=== PATIENT | female | born 1945 | race Caucasian/White ===

== ENCOUNTER → 2018-09-06 | Day surgery (SDC) | payer MEDICARE ==
[2018-09-01 09:25] LABS: BASOPHILS # (AUTO) 0.1 (0.0-0.1); BASOPHILS % 0.7 % (0.0-1.0); EOSINOPHILS # (AUTO) 0.2 (0.0-0.4); EOSINOPHILS % 2.5 % (0.0-6.0); HEMATOCRIT 40.5 % (34.2-44.1); HEMOGLOBIN 13.3 g/dL (12.0-16.0); LYMPHOCYTES # (AUTO) 3.1 (1.0-3.2); LYMPHOCYTES % 33.1 % (18.0-39.1); MEAN CORPUSCULAR HGB CONC 32.8 g/dL (31-35); MEAN CORPUSCULAR VOLUME 91.4 fL (81-99); MONOCYTES # (AUTO) 1.1 (0.2-0.8); MONOCYTES % 11.5 % (4.4-11.3); NEUTROPHILS # (AUTO) 4.9 (2.1-6.9); NEUTROPHILS % 51.9 % (38.7-80.0); PLATELET COUNT 434 x10e3/uL (140-360); RED BLOOD COUNT 4.43 x10e6/uL (3.6-5.1); RED CELL DISTRIBUTION WIDTH 12.9 % (11.7-14.4)
[~2018-09-06] MED LIST: DILTIAZEM HCL30 MG; FENTANYL CITRATE/PF 100MCG/2 ML INJ ONE; HYOSCYAMINE SULFATE 0.5 MG/ML INJ ONE; LOSARTAN POTASS25 MG PO; MIDAZOLAM HCL 2 MG/2 ML VIAL ONE; PROPOFOL IV EMULSION 10 MG/ML 50 ML VIAL ONE; [UNRECOGNIZED DRUG - OTHER]
--- OUTSIDE RECORDS SUMMARY | 2018-09-06 07:41 | XMS REPORT ---
[facility] Address Unknown Phone Unavailable Care Team Providers Care Wildlife Veterinarian Name Role Phone Unavailable Unavailable Payers Payer Name Policy Type Policy Number Effective Date Expiration Date Problems This patient has no known problems. Allergies, Adverse Reactions, Alerts Allergy Name Allergy Type Status Severity Reaction(s) Onset Date Inactive Date Treating Clinician Comments codeine DA Active SV 2018-07-24 00:00:00 codeine DA Active SV 2009-02-05 00:00:00 Medications This patient has no known medications.
[2018-09-06 11:50] VITALS: BP 149/93
--- NOTE | 2018-09-06 12:07 | Operative Report ---
DATE OF PROCEDURE: September 06, 2018 REFERRING PHYSICIAN: Dr. Vanessa Jeffries. PROCEDURE PERFORMED: Colonoscopy and polypectomy. INDICATIONS FOR COLONOSCOPY: Surveillance colonoscopy. Personal history of colon polyps. MEDICATION: Patient was done under MAC. Please see anesthesiologist's note. PROCEDURE: With patient in left lateral decubitus position, a flexible fiberoptic Olympus colonoscope was inserted into the rectum with ease and advanced all the way to the cecum. There was an approximately 6-mm polyp just below the ileocecal valve that was snared. Polypectomy site was hemoclipped. The scope was then slowly withdrawn and the mucosa overlying the ascending colon and transverse colon appeared to be within normal limits. One polyp was hot biopsied from the descending colon. Diverticular disease was noted to involve the distal descending and the sigmoid colon. The rectum grossly appeared to be within normal limits. The scope was then retroflexed into the distal rectum and small internal hemorrhoids were noted, none of which was actively bleeding. The scope was then straightened out. It was subsequently withdrawn. Patient tolerated the procedure well. IMPRESSIONS 1. Cecal polyp, snared and site was hemoclipped. 2. Descending colon polyp, hot biopsied. 3. Diverticulosis. 4. Internal hemorrhoids, none actively bleeding. PLAN: Follow up histology. Initiate high-fiber, low-fat diet. Initiate high-fiber supplement. Patient might benefit from a followup colonoscopy in 3 to 5 years. Job#: [id number] TA cc:VANESSA JEFFRIES, DO,
== END | disposition home or self-care (01) ==
LOC: OR 07:38
PROVIDERS: ATTEND Internal Medicine Gastroenterology
DX: Z09 Encounter for follow-up examination after completed treatment for conditions other than malignant neoplasm (principal); K63.5 Polyp of colon; K57.30 Diverticulosis of large intestine without perforation or abscess without bleeding; K59.09 Other constipation; K64.8 Other hemorrhoids; K21.9 Gastro-esophageal reflux disease without esophagitis; K44.9 Diaphragmatic hernia without obstruction or gangrene; I10 Essential (primary) hypertension; E11.9 Type 2 diabetes mellitus without complications; F41.9 Anxiety disorder, unspecified; Z88.6 Allergy status to analgesic agent; Z01.810 Encounter for preprocedural cardiovascular examination; Z01.812 Encounter for preprocedural laboratory examination; Z79.4 Long term (current) use of insulin
CPT/HCPCS: 36415 ×2; 45384; 45385; 82948; 85025; 88305; 93005; J1980; J2250; 45378

== ENCOUNTER 2022-04-30 18:54 | Inpatient (IN) | payer MEDICARE ==
[~2022-04-30] VITALS: Ht 154.9 cm; Wt 59.0 kg
[~2022-04-30 18:54] MED LIST changes: -FENTANYL CITRATE/PF 100MCG/2 ML INJ ONE; -HYOSCYAMINE SULFATE 0.5 MG/ML INJ ONE; -MIDAZOLAM HCL 2 MG/2 ML VIAL ONE; -PROPOFOL IV EMULSION 10 MG/ML 50 ML VIAL ONE
[2022-04-30] MEDS ORDERED: ONDANSETRON HCL INJ 2MG/ML 2ML 2 MG/ML VIAL IV PRN (19:15)
[2022-04-30 20:12] LABS: BASOPHILS # (AUTO) 0.1 (0.0-0.1); BASOPHILS % 0.7 % (0.0-1.0); EOSINOPHILS # (AUTO) 0.2 (0.0-0.4); EOSINOPHILS % 1.7 % (0.0-6.0); HEMATOCRIT 38.1 % (34.2-44.1); HEMOGLOBIN 12.2 g/dL (12.0-16.0); LYMPHOCYTES # (AUTO) 3.1 (1.0-3.2); LYMPHOCYTES % 28.6 % (18.0-39.1); MEAN CORPUSCULAR VOLUME 90.7 fL (81-99); MONOCYTES # (AUTO) 1.7 (0.2-0.8); MONOCYTES % 16.2 % (4.4-11.3); NEUTROPHILS # (AUTO) 5.6 (2.1-6.9); NEUTROPHILS % 52.5 % (38.7-80.0); PLATELET COUNT 543 x10e3/uL (140-360); RED CELL DISTRIBUTION WIDTH 13.4 % (11.7-14.4)
[2022-04-30 20:27] LABS: CLARITY,URINE CLEAR (CLEAR); COLOR,URINE YELLOW (YELLOW)
[2022-04-30 20:28] LABS: KETONES,URINE NEGATIVE (NEGATIVE); LEUKOCYTE ESTERASE ,URINE NEGATIVE (NEGATIVE); NITRITE,URINE NEGATIVE (NEGATIVE); PROTEIN,URINE DIPSTICK 2+ (NEGATIVE); URINE UROBILINOGEN 1 mg/dL (0.2 - 1)
[2022-04-30 20:43] LABS: BACTERIA,URINE FEW /HPF; EPITHELIAL CELLS,URINE FEW /LPF; RBC,URINE 21-50 /HPF (0-5); TRANSITIONAL EPI CELLS,URINE FEW; WBC,URINE (MAN) 21-50 /HPF (0-5)
[2022-04-30 22:19] LABS: ALBUMIN 3.2 g/dL (3.5-5.0); ALBUMIN/GLOBULIN RATIO 0.6 (0.8-2.0); ANION GAP 17.4 mmol/L (8-16); CALCIUM 9.5 mg/dL (8.4-10.2); CREATININE, SERUM 0.85 mg/dL (0.57-1.11); POTASSIUM 4.4 mmol/L (3.5-5.1)
[2022-04-30] MEDS ORDERED: IOPAMIDOL 370 MG/ML 100 ML INFUS..BTL INJ ONE (23:04)
[2022-05-01] MEDS ORDERED: ONDANSETRON HCL INJ 2MG/ML 2ML 2 MG/ML VIAL IV PRN
[2022-05-01] MEDS ORDERED: Morphine 4mg INJECTION 4 MG/ML INJ IV PRN
[2022-05-01] MEDS: SODIUM CHLORIDE 0.9% 1000ML 1,000 ML IV SCH ×4 (00:34→23:26)
[2022-05-01 05:27] LABS: BASOPHILS # (AUTO) 0.1 (0.0-0.1); BASOPHILS % 0.5 % (0.0-1.0); EOSINOPHILS # (AUTO) 0.2 (0.0-0.4); EOSINOPHILS % 2.4 % (0.0-6.0); HEMATOCRIT 35.4 % (34.2-44.1); HEMOGLOBIN 11.2 g/dL (12.0-16.0); LYMPHOCYTES # (AUTO) 3.6 (1.0-3.2); LYMPHOCYTES % 36.1 % (18.0-39.1); MEAN CORPUSCULAR HEMOGLOBIN 28.9 pg (28-32); MEAN CORPUSCULAR HGB CONC 31.6 g/dL (31-35); MEAN CORPUSCULAR VOLUME 91.5 fL (81-99); MONOCYTES # (AUTO) 1.7 (0.2-0.8); MONOCYTES % 17.2 % (4.4-11.3); NEUTROPHILS # (AUTO) 4.3 (2.1-6.9); NEUTROPHILS % 43.6 % (38.7-80.0); PLATELET COUNT 519 x10e3/uL (140-360); RED BLOOD COUNT 3.87 x10e6/uL (3.6-5.1); RED CELL DISTRIBUTION WIDTH 13.6 % (11.7-14.4)
[2022-05-01 05:38] LABS: ALBUMIN 2.8 g/dL (3.5-5.0); ALBUMIN/GLOBULIN RATIO 0.6 (0.8-2.0); ANION GAP 18.8 mmol/L (8-16); CALCIUM 9.2 mg/dL (8.4-10.2); CREATININE, SERUM 0.77 mg/dL (0.57-1.11); POTASSIUM 4.8 mmol/L (3.5-5.1)
[2022-05-01] MEDS ORDERED: CIPROFLOXACIN 400 MG/D5W 200ML 200 ML IV SCH (09:00)
[2022-05-01] MEDS: METRONIDAZOLE 500MG/NS 100ML 100 ML IV SCH ×3 (09:00→20:39)
[2022-05-01] MEDS: GUAIFENESIN 200 MG/10 ML UDC PO PRN ×2 (10:28→20:40)
[2022-05-01] MEDS ORDERED: BEBTELOVIMAB 175 MG INJ IV ONE (15:00)
[2022-05-01] MEDS: BENZONATATE 100 MG CAP PO SCH ×2 (16:17→20:39)
[2022-05-01 19:40] VITALS: BP 169/71
[2022-05-01 20:00] VITALS: BP 169/71
[2022-05-02] VITALS (8 sets, daily range): BP systolic 113–163; BP diastolic 55–96
[2022-05-02] MEDS ORDERED: COREG12.5 MG PO (03:03)
[2022-05-02] MEDS ORDERED: NOVOLOG100 UNIT/1 SC (03:05)
[2022-05-02] MEDS ORDERED: TRESIBA100 UNIT/1 (03:06)
[2022-05-02] MEDS: SODIUM CHLORIDE 0.9% 1000ML 1,000 ML IV SCH ×2 (04:52→15:11)
[2022-05-02] MEDS: GUAIFENESIN 200 MG/10 ML UDC PO PRN ×4 (04:52→20:51)
[2022-05-02 07:01] LABS: BASOPHILS # (AUTO) 0.1 (0.0-0.1); BASOPHILS % 0.7 % (0.0-1.0); EOSINOPHILS # (AUTO) 0.3 (0.0-0.4); EOSINOPHILS % 3.4 % (0.0-6.0); HEMATOCRIT 35.3 % (34.2-44.1); HEMOGLOBIN 11.2 g/dL (12.0-16.0); LYMPHOCYTES # (AUTO) 2.3 (1.0-3.2); LYMPHOCYTES % 27.7 % (18.0-39.1); MEAN CORPUSCULAR HEMOGLOBIN 28.9 pg (28-32); MEAN CORPUSCULAR HGB CONC 31.7 g/dL (31-35); MEAN CORPUSCULAR VOLUME 91.2 fL (81-99); MONOCYTES # (AUTO) 1.3 (0.2-0.8); MONOCYTES % 15.5 % (4.4-11.3); NEUTROPHILS # (AUTO) 4.4 (2.1-6.9); NEUTROPHILS % 52.5 % (38.7-80.0); PLATELET COUNT 503 x10e3/uL (140-360); RED BLOOD COUNT 3.87 x10e6/uL (3.6-5.1); RED CELL DISTRIBUTION WIDTH 13.6 % (11.7-14.4)
[2022-05-02 07:34] LABS: ANION GAP 17.1 mmol/L (8-16); CALCIUM 8.6 mg/dL (8.4-10.2); CREATININE, SERUM 0.69 mg/dL (0.57-1.11); POTASSIUM 4.1 mmol/L (3.5-5.1)
[2022-05-02] MEDS: METRONIDAZOLE 500MG/NS 100ML 100 ML IV SCH ×3 (08:25→20:49)
[2022-05-02] MEDS: BENZONATATE 100 MG CAP PO SCH ×3 (08:25→20:50)
[2022-05-02] MEDS ORDERED: DEXTROSE 50% SYRINGE 50 ML IV PRN (09:00)
[2022-05-02] MEDS: INSULIN REGULAR, HUMAN 100 UNIT/1 ML SQ SCH ×3 (12:23→21:00)
[2022-05-02] MEDS: CARVEDILOL 12.5 MG TAB PO SCH (20:49)
[2022-05-02] MEDS: LOSARTAN POTASSIUM 25 MG TAB PO SCH (20:50)
[2022-05-03] VITALS (7 sets, daily range): BP systolic 126–170; BP diastolic 51–71
[2022-05-03] MEDS: SODIUM CHLORIDE 0.9% 1000ML 1,000 ML IV SCH ×3 (00:37→15:51)
[2022-05-03] MEDS: METRONIDAZOLE 500MG/NS 100ML 100 ML IV SCH ×3 (07:57→20:33)
[2022-05-03] MEDS: GUAIFENESIN 200 MG/10 ML UDC PO PRN ×2 (07:57→21:04)
[2022-05-03] MEDS: BENZONATATE 100 MG CAP PO SCH ×3 (07:57→20:32)
[2022-05-03] MEDS: INSULIN REGULAR, HUMAN 100 UNIT/1 ML SQ SCH ×4 (08:00→20:50)
[2022-05-03] MEDS: BISMUTH SUBSALICYLATE 262 MG TAB PO PRN (12:26)
[2022-05-03] MEDS: CHOLESTYRAMINE 4 GM PACKET PO SCH (15:51)
[2022-05-03] MEDS: LOSARTAN POTASSIUM 25 MG TAB PO SCH (20:32)
[2022-05-03] MEDS: CARVEDILOL 12.5 MG TAB PO SCH (20:33)
[2022-05-04] VITALS (7 sets, daily range): BP systolic 135–160; BP diastolic 54–67
[2022-05-04] MEDS: SODIUM CHLORIDE 0.9% 1000ML 1,000 ML IV SCH ×4 (00:20→21:27)
[2022-05-04] MEDS: GUAIFENESIN 200 MG/10 ML UDC PO PRN ×3 (00:49→15:42)
[2022-05-04] MEDS: INSULIN REGULAR, HUMAN 100 UNIT/1 ML SQ SCH ×4 (07:30→21:00)
[2022-05-04] MEDS: BENZONATATE 100 MG CAP PO SCH ×3 (08:53→21:25)
[2022-05-04] MEDS: CHOLESTYRAMINE 4 GM PACKET PO SCH ×2 (08:53→16:43)
[2022-05-04] MEDS: METRONIDAZOLE 500MG/NS 100ML 100 ML IV SCH ×3 (08:53→21:25)
[2022-05-04] MEDS: LACTOBACILLUS ACIDOPHILUS CAPSULE PO SCH (16:43)
[2022-05-04] MEDS: LOSARTAN POTASSIUM 25 MG TAB PO SCH (21:26)
[2022-05-04] MEDS: CARVEDILOL 12.5 MG TAB PO SCH (21:27)
[2022-05-05] VITALS (8 sets, daily range): BP systolic 130–169; BP diastolic 63–80
[2022-05-05] MEDS ORDERED: IOPAMIDOL 370 MG/ML 100 ML INFUS..BTL INJ ONE (04:49)
[2022-05-05] MEDS: INSULIN REGULAR, HUMAN 100 UNIT/1 ML SQ SCH ×4 (07:30→21:00)
[2022-05-05] MEDS: CHOLESTYRAMINE 4 GM PACKET PO SCH ×2 (10:00→15:16)
[2022-05-05] MEDS: BENZONATATE 100 MG CAP PO SCH ×3 (10:45→21:33)
[2022-05-05] MEDS: LACTOBACILLUS ACIDOPHILUS CAPSULE PO SCH ×2 (10:45→18:16)
[2022-05-05] MEDS: GUAIFENESIN 200 MG/10 ML UDC PO PRN (10:50)
[2022-05-05] MEDS: SODIUM CHLORIDE 0.9% 1000ML 1,000 ML IV SCH ×2 (11:58→16:00)
[2022-05-05] MEDS: METRONIDAZOLE 500MG/NS 100ML 100 ML IV SCH (11:59)
[2022-05-05] MEDS ORDERED: ONDANSETRON HCL 4 MG ORAL DISINTEGRATING TAB PO PRN (19:45)
[2022-05-05] MEDS: LOSARTAN POTASSIUM 25 MG TAB PO SCH (21:32)
[2022-05-05] MEDS: CARVEDILOL 12.5 MG TAB PO SCH (21:33)
[2022-05-06] MEDS: SODIUM CHLORIDE 0.9% 1000ML 1,000 ML IV SCH ×4 (00:01→21:40)
[2022-05-06] MEDS: GUAIFENESIN 200 MG/10 ML UDC PO PRN ×5 (00:34→21:39)
[2022-05-06] MEDS: INSULIN REGULAR, HUMAN 100 UNIT/1 ML SQ SCH ×4 (08:45→21:00)
[2022-05-06 08:50] VITALS: BP 169/78
[2022-05-06] MEDS: CHOLESTYRAMINE 4 GM PACKET PO SCH ×2 (08:52→17:07)
[2022-05-06 08:59] VITALS: BP 174/77
[2022-05-06] MEDS: BENZONATATE 100 MG CAP PO SCH ×3 (09:13→19:45)
[2022-05-06] MEDS: LACTOBACILLUS ACIDOPHILUS CAPSULE PO SCH ×2 (09:13→17:06)
[2022-05-06 12:23] VITALS: BP 176/74
[2022-05-06] MEDS ORDERED: BENZONATATE 100 MG CAP PO PRN (14:00)
[2022-05-06] MEDS: LOSARTAN POTASSIUM 25 MG TAB PO SCH (17:06)
[2022-05-06 17:13] VITALS: BP 176/74
[2022-05-06] MEDS: NYSTATIN 15 GM POWDER UD BTL TOP SCH (21:35)
[2022-05-06] MEDS: CARVEDILOL 12.5 MG TAB PO SCH (21:36)
[2022-05-06 21:57] VITALS: BP 164/72
[2022-05-06 22:00] VITALS: BP 164/72
[2022-05-07] VITALS (8 sets, daily range): BP systolic 134–165; BP diastolic 69–87
[2022-05-07] MEDS: GUAIFENESIN 200 MG/10 ML UDC PO PRN ×3 (05:29→20:29)
[2022-05-07 06:06] LABS: BASOPHILS # (AUTO) 0.1 (0.0-0.1); BASOPHILS % 0.6 % (0.0-1.0); EOSINOPHILS # (AUTO) 0.6 (0.0-0.4); EOSINOPHILS % 5.8 % (0.0-6.0); HEMATOCRIT 32.3 % (34.2-44.1); HEMOGLOBIN 10.5 g/dL (12.0-16.0); LYMPHOCYTES # (AUTO) 2.9 (1.0-3.2); LYMPHOCYTES % 25.6 % (18.0-39.1); MEAN CORPUSCULAR HEMOGLOBIN 29.2 pg (28-32); MEAN CORPUSCULAR HGB CONC 32.5 g/dL (31-35); MEAN CORPUSCULAR VOLUME 89.7 fL (81-99); MONOCYTES # (AUTO) 1.4 (0.2-0.8); MONOCYTES % 12.8 % (4.4-11.3); NEUTROPHILS # (AUTO) 6.1 (2.1-6.9); NEUTROPHILS % 54.7 % (38.7-80.0); PLATELET COUNT 518 x10e3/uL (140-360); RED CELL DISTRIBUTION WIDTH 14.6 % (11.7-14.4)
[2022-05-07 06:32] LABS: ANION GAP 13.4 mmol/L (8-16); BLOOD UREA NITROGEN < 5 mg/dL (7-26); CALCIUM 8.6 mg/dL (8.4-10.2); CARBON DIOXIDE 28 mmol/L (22-29); CHLORIDE 104 mmol/L (98-107); CREATININE, SERUM 0.69 mg/dL (0.57-1.11); GLUCOSE 97 mg/dL (74-118); POTASSIUM 3.4 mmol/L (3.5-5.1); SODIUM 142 mmol/L (136-145)
[2022-05-07 06:33] LABS: BUN/CREATININE RATIO 7 (6-25)
[2022-05-07] MEDS: INSULIN REGULAR, HUMAN 100 UNIT/1 ML SQ SCH ×4 (07:30→20:28)
[2022-05-07] MEDS: SODIUM CHLORIDE 0.9% 1000ML 1,000 ML IV SCH ×2 (08:44→17:00)
[2022-05-07] MEDS: LOSARTAN POTASSIUM 25 MG TAB PO SCH ×2 (08:46→16:33)
[2022-05-07] MEDS: LACTOBACILLUS ACIDOPHILUS CAPSULE PO SCH ×2 (08:46→16:32)
[2022-05-07] MEDS: BENZONATATE 100 MG CAP PO SCH ×3 (08:46→20:28)
[2022-05-07] MEDS: NYSTATIN 15 GM POWDER UD BTL TOP SCH (08:47)
[2022-05-07] MEDS: CHOLESTYRAMINE 4 GM PACKET PO SCH ×2 (08:47→16:34)
[2022-05-07] MEDS: BISMUTH SUBSALICYLATE 262 MG TAB PO PRN (08:47)
[2022-05-07] MEDS ORDERED: POTASSIUM CHLORIDE 20 MEQ TAB CR PO ONE (10:00)
[2022-05-07] MEDS: CARVEDILOL 12.5 MG TAB PO SCH (20:28)
== END 2022-05-07 22:34 | disposition home or self-care (01) | DRG 391 ==
LOC: ER 18:59 → ERHOLD 05-01 00:07 → MED/SURG3 05-01 18:01
PROC: 8E0ZXY6 Isolation (ICD-10-PCS; principal; 2022-05-01)
DX: K57.20 Diverticulitis of large intestine with perforation and abscess without bleeding (principal); K65.1 Peritoneal abscess; E11.9 Type 2 diabetes mellitus without complications; I10 Essential (primary) hypertension; Z20.822 Contact with and (suspected) exposure to COVID-19; R11.2 Nausea with vomiting, unspecified; T37.3X5A Adverse effect of other antiprotozoal drugs, initial encounter
CPT/HCPCS: 36415; 36569; 71045; 74177; 80048; 80053; 81001; 82948; 85025; 99284; J0692; J1817; J2270; J2405; J2543; J7030; Q0162; Q9967

== ENCOUNTER 2022-06-04 09:44 | Inpatient (IN) | payer MEDICARE ==
[~2022-06-04] VITALS: Ht 152.4 cm; Wt 51.0 kg
[~2022-06-04 09:44] MED LIST changes: +COREG12.5 MG PO; +NOVOLOG100 UNIT/1 SC; +TRESIBA100 UNIT/1
[2022-06-04] MEDS ORDERED: ONDANSETRON HCL INJ 2MG/ML 2ML 2 MG/ML VIAL IV STA (09:50)
[2022-06-04] MEDS ORDERED: Morphine 2mg Syringe 2 MG/ML SYR IV STA (09:56)
[2022-06-04 10:01] LABS: BASOPHILS # (AUTO) 0.1 (0.0-0.1); BASOPHILS % 0.3 % (0.0-1.0); EOSINOPHILS % 0.3 % (0.0-6.0); HEMATOCRIT 40.6 % (34.2-44.1); HEMOGLOBIN 12.5 g/dL (12.0-16.0); LYMPHOCYTES # (AUTO) 1.7 (1.0-3.2); LYMPHOCYTES % 11.2 % (18.0-39.1); MEAN CORPUSCULAR HEMOGLOBIN 28.8 pg (28-32); MEAN CORPUSCULAR HGB CONC 30.8 g/dL (31-35); MEAN CORPUSCULAR VOLUME 93.5 fL (81-99); MONOCYTES # (AUTO) 1.7 (0.2-0.8); MONOCYTES % 10.7 % (4.4-11.3); NEUTROPHILS % 77.2 % (38.7-80.0); PLATELET COUNT 649 x10e3/uL (140-360); RED BLOOD COUNT 4.34 x10e6/uL (3.6-5.1); RED CELL DISTRIBUTION WIDTH 13.2 % (11.7-14.4)
[2022-06-04] MEDS ORDERED: Morphine 4mg INJECTION 4 MG/ML INJ ONE (10:15)
[2022-06-04] MEDS ORDERED: DIATRIZOATE MEGL/DIATRIZOA SOD 30 ML BTL PO ONE (10:19)
[2022-06-04 10:23] LABS: CLARITY,URINE CLEAR (CLEAR); COLOR,URINE YELLOW (YELLOW); KETONES,URINE 1+ (NEGATIVE); LEUKOCYTE ESTERASE ,URINE NEGATIVE (NEGATIVE); NITRITE,URINE NEGATIVE (NEGATIVE); PROTEIN,URINE DIPSTICK >=300 (NEGATIVE); URINE UROBILINOGEN 1 mg/dL (0.2 - 1)
[2022-06-04 10:26] LABS: INR 1.02; PARTIAL THROMBOPLASTIN TIME 32.5 seconds (23.8-35.5); PROTHROMBIN TIME 14.3 seconds (11.9-14.5)
[2022-06-04 10:27] LABS: BACTERIA,URINE MODERATE /HPF; EPITHELIAL CELLS,URINE MODERATE /LPF; MUCUS,URINE FEW (RARE)
[2022-06-04 10:32] LABS: ALANINE AMINOTRANSFERASE 11 IU/L (0-55); ALBUMIN 2.9 g/dL (3.5-5.0); ALBUMIN/GLOBULIN RATIO 0.4 (0.8-2.0); ALKALINE PHOSPHATASE 72 IU/L (40-150); ANION GAP 20.3 mmol/L (8-16); BLOOD UREA NITROGEN 16 mg/dL (7-26); BUN/CREATININE RATIO 19 (6-25); CALCIUM 9.5 mg/dL (8.4-10.2); CARBON DIOXIDE 22 mmol/L (22-29); CHLORIDE 94 mmol/L (98-107); CREATINE KINASE 11 IU/L (29-168); CREATININE, SERUM 0.86 mg/dL (0.57-1.11); GLUCOSE 252 mg/dL (74-118); LIPASE 24 U/L (8-78); MAGNESIUM 1.7 MG/DL (1.3-2.1); POTASSIUM 4.3 mmol/L (3.5-5.1); SODIUM 132 mmol/L (136-145)
[2022-06-04] MEDS ORDERED: IOPAMIDOL 370 MG/ML 100 ML INFUS..BTL INJ ONE (11:03)
[2022-06-04 13:45] VITALS: BP 149/68
[2022-06-04] MEDS: METRONIDAZOLE 500MG/NS 100ML 100 ML IV SCH ×2 (13:50→20:13)
[2022-06-04] MEDS: ONDANSETRON HCL INJ 2MG/ML 2ML 2 MG/ML VIAL IV PRN ×2 (14:00→20:12)
[2022-06-04] MEDS: Morphine 2mg Syringe 2 MG/ML SYR IV PRN ×2 (14:00→20:13)
[2022-06-04] MEDS ORDERED: BENADRYL25 M1 PO (16:54)
[2022-06-04 18:00] VITALS: BP 149/68
[2022-06-04] MEDS: SODIUM CHLORIDE 0.9% 1000ML 1,000 ML IV SCH (18:04)
[2022-06-04 20:00] VITALS: BP 125/58
[2022-06-04 21:02] VITALS: BP 149/68
[2022-06-05] VITALS (8 sets, daily range): BP systolic 102–135; BP diastolic 49–86
[2022-06-05] MEDS: ONDANSETRON HCL INJ 2MG/ML 2ML 2 MG/ML VIAL IV PRN ×3 (00:23→13:47)
[2022-06-05] MEDS: Morphine 2mg Syringe 2 MG/ML SYR IV PRN ×3 (00:24→13:47)
[2022-06-05] MEDS: METRONIDAZOLE 500MG/NS 100ML 100 ML IV SCH ×4 (02:27→20:25)
[2022-06-05] MEDS: SODIUM CHLORIDE 0.9% 1000ML 1,000 ML IV SCH ×3 (05:09→18:38)
[2022-06-05 07:15] LABS: BASOPHILS # (AUTO) 0.1 (0.0-0.1); BASOPHILS % 0.6 % (0.0-1.0); EOSINOPHILS # (AUTO) 0.1 (0.0-0.4); EOSINOPHILS % 0.5 % (0.0-6.0); LYMPHOCYTES % 10.8 % (18.0-39.1); MEAN CORPUSCULAR HEMOGLOBIN 28.6 pg (28-32); MEAN CORPUSCULAR HGB CONC 32.4 g/dL (31-35); MEAN CORPUSCULAR VOLUME 88.5 fL (81-99); MONOCYTES # (AUTO) 2.9 (0.2-0.8); MONOCYTES % 15.3 % (4.4-11.3); NEUTROPHILS # (AUTO) 13.5 (2.1-6.9); NEUTROPHILS % 72.1 % (38.7-80.0); PLATELET COUNT 605 x10e3/uL (140-360); RED BLOOD COUNT 3.84 x10e6/uL (3.6-5.1); RED CELL DISTRIBUTION WIDTH 13.5 % (11.7-14.4)
[2022-06-05 07:57] LABS: ALBUMIN 2.2 g/dL (3.5-5.0); ALBUMIN/GLOBULIN RATIO 0.4 (0.8-2.0); ANION GAP 17.2 mmol/L (8-16); CALCIUM 8.9 mg/dL (8.4-10.2); CREATININE, SERUM 0.77 mg/dL (0.57-1.11); POTASSIUM 4.2 mmol/L (3.5-5.1)
[2022-06-05] MEDS ORDERED: DEXTROSE 50% SYRINGE 50 ML IV PRN (10:00)
[2022-06-05] MEDS ORDERED: HYDRALAZINE HCL 20 MG/ML VIAL IV PRN (10:00)
[2022-06-05] MEDS: INSULIN LISPRO 100 UNIT/1 ML 3ML VIAL SQ SCH ×3 (12:12→20:39)
[2022-06-05] MEDS: FLUCONAZOLE 200 MG/100 ML 100 ML IV SCH (13:37)
[2022-06-05] MEDS: CEFEPIME 2 GM in SODIUM CHLORIDE 0.9% 100 ML IV SCH ×2 (13:37→22:00)
[2022-06-05] MEDS: Vancomycin IV 1 GM in SODIUM CHLORIDE 0.9% 250ML 250 ML IV SCH (20:26)
[2022-06-05] MEDS: MAGNESIUM HYDROXIDE 30 ML UDC PO SCH (20:27)
[2022-06-06] VITALS (7 sets, daily range): BP systolic 116–168; BP diastolic 51–67
[2022-06-06] MEDS: METRONIDAZOLE 500MG/NS 100ML 100 ML IV SCH ×4 (02:00→20:27)
[2022-06-06] MEDS ORDERED: CEFEPIME 2 GM VIAL ONE (03:43)
[2022-06-06] MEDS: CEFEPIME 2 GM in SODIUM CHLORIDE 0.9% 100 ML IV SCH ×3 (05:08→22:00)
[2022-06-06] MEDS: Morphine 2mg Syringe 2 MG/ML SYR IV PRN ×2 (05:09→17:25)
[2022-06-06] MEDS: ONDANSETRON HCL INJ 2MG/ML 2ML 2 MG/ML VIAL IV PRN ×2 (05:09→17:24)
[2022-06-06 07:00] LABS: BASOPHILS # (AUTO) 0.1 (0.0-0.1); BASOPHILS % 0.4 % (0.0-1.0); EOSINOPHILS # (AUTO) 0.1 (0.0-0.4); EOSINOPHILS % 0.4 % (0.0-6.0); HEMATOCRIT 32.5 % (34.2-44.1); HEMOGLOBIN 10.5 g/dL (12.0-16.0); LYMPHOCYTES # (AUTO) 1.7 (1.0-3.2); LYMPHOCYTES % 12.4 % (18.0-39.1); MEAN CORPUSCULAR HEMOGLOBIN 29.1 pg (28-32); MEAN CORPUSCULAR HGB CONC 32.3 g/dL (31-35); MONOCYTES # (AUTO) 1.8 (0.2-0.8); MONOCYTES % 12.9 % (4.4-11.3); NEUTROPHILS # (AUTO) 10.3 (2.1-6.9); NEUTROPHILS % 73.1 % (38.7-80.0); PLATELET COUNT 545 x10e3/uL (140-360); RED BLOOD COUNT 3.61 x10e6/uL (3.6-5.1); RED CELL DISTRIBUTION WIDTH 13.5 % (11.7-14.4)
[2022-06-06 07:23] LABS: ALBUMIN 2.1 g/dL (3.5-5.0); ALBUMIN/GLOBULIN RATIO 0.4 (0.8-2.0); ANION GAP 16.1 mmol/L (8-16); CALCIUM 8.9 mg/dL (8.4-10.2); CREATININE, SERUM 0.72 mg/dL (0.57-1.11); POTASSIUM 4.1 mmol/L (3.5-5.1)
[2022-06-06] MEDS: INSULIN LISPRO 100 UNIT/1 ML 3ML VIAL SQ SCH ×4 (08:44→20:34)
[2022-06-06] MEDS: Vancomycin IV 1 GM in SODIUM CHLORIDE 0.9% 250ML 250 ML IV SCH ×2 (09:00→20:27)
[2022-06-06] MEDS: SODIUM CHLORIDE 0.9% 1000ML 1,000 ML IV SCH ×2 (11:19→17:09)
[2022-06-06] MEDS: FLUCONAZOLE 200 MG/100 ML 100 ML IV SCH (12:07)
[2022-06-06] MEDS: MAGNESIUM HYDROXIDE 30 ML UDC PO SCH (20:28)
[2022-06-07] VITALS (8 sets, daily range): BP systolic 152–179; BP diastolic 61–96
[2022-06-07] MEDS: SODIUM CHLORIDE 0.9% 1000ML 1,000 ML IV SCH ×2 (00:45→08:34)
[2022-06-07] MEDS: METRONIDAZOLE 500MG/NS 100ML 100 ML IV SCH ×4 (02:00→21:06)
[2022-06-07] MEDS: CEFEPIME 2 GM in SODIUM CHLORIDE 0.9% 100 ML IV SCH ×3 (04:38→23:23)
[2022-06-07 06:06] LABS: BASOPHILS # (AUTO) 0.1 (0.0-0.1); BASOPHILS % 0.5 % (0.0-1.0); EOSINOPHILS # (AUTO) 0.5 (0.0-0.4); EOSINOPHILS % 4.4 % (0.0-6.0); HEMATOCRIT 33.8 % (34.2-44.1); HEMOGLOBIN 10.3 g/dL (12.0-16.0); LYMPHOCYTES # (AUTO) 2.1 (1.0-3.2); LYMPHOCYTES % 19.7 % (18.0-39.1); MEAN CORPUSCULAR HEMOGLOBIN 28.9 pg (28-32); MEAN CORPUSCULAR HGB CONC 30.5 g/dL (31-35); MEAN CORPUSCULAR VOLUME 94.7 fL (81-99); MONOCYTES # (AUTO) 1.7 (0.2-0.8); NEUTROPHILS # (AUTO) 6.2 (2.1-6.9); NEUTROPHILS % 58.8 % (38.7-80.0); PLATELET COUNT 606 x10e3/uL (140-360); RED BLOOD COUNT 3.57 x10e6/uL (3.6-5.1); RED CELL DISTRIBUTION WIDTH 13.5 % (11.7-14.4)
[2022-06-07 06:33] LABS: ALBUMIN 2.2 g/dL (3.5-5.0); ALBUMIN/GLOBULIN RATIO 0.4 (0.8-2.0); ANION GAP 14.7 mmol/L (8-16); CALCIUM 8.5 mg/dL (8.4-10.2); CREATININE, SERUM 0.68 mg/dL (0.57-1.11); MAGNESIUM 1.9 MG/DL (1.3-2.1); POTASSIUM 3.7 mmol/L (3.5-5.1)
[2022-06-07] MEDS: INSULIN LISPRO 100 UNIT/1 ML 3ML VIAL SQ SCH ×4 (07:30→20:41)
[2022-06-07] MEDS: Vancomycin IV 1 GM in SODIUM CHLORIDE 0.9% 250ML 250 ML IV SCH (08:33)
[2022-06-07] MEDS: FLUCONAZOLE 200 MG/100 ML 100 ML IV SCH (13:33)
[2022-06-07] MEDS: Morphine 2mg Syringe 2 MG/ML SYR IV PRN ×2 (15:57→20:52)
[2022-06-07] MEDS: MAGNESIUM HYDROXIDE 30 ML UDC PO SCH (20:51)
[2022-06-07] MEDS: ONDANSETRON HCL INJ 2MG/ML 2ML 2 MG/ML VIAL IV PRN (20:52)
[2022-06-08] VITALS (8 sets, daily range): BP systolic 141–164; BP diastolic 65–87
[2022-06-08] MEDS: SODIUM CHLORIDE 0.9% 1000ML 1,000 ML IV SCH ×3 (00:37→16:53)
[2022-06-08] MEDS: Vancomycin IV 1 GM in SODIUM CHLORIDE 0.9% 250ML 250 ML IV SCH (00:38)
[2022-06-08] MEDS ORDERED: Vancomycin IV 1 GM in SODIUM CHLORIDE 0.9% 250ML 250 ML IV SCH ×2 (01:00→13:00)
[2022-06-08] MEDS: ONDANSETRON HCL INJ 2MG/ML 2ML 2 MG/ML VIAL IV PRN (01:52)
[2022-06-08] MEDS: Morphine 2mg Syringe 2 MG/ML SYR IV PRN ×3 (01:52→14:07)
[2022-06-08] MEDS: METRONIDAZOLE 500MG/NS 100ML 100 ML IV SCH ×4 (03:14→20:34)
[2022-06-08] MEDS: CEFEPIME 2 GM in SODIUM CHLORIDE 0.9% 100 ML IV SCH ×3 (05:39→23:10)
[2022-06-08] MEDS: INSULIN LISPRO 100 UNIT/1 ML 3ML VIAL SQ SCH ×4 (07:30→20:34)
[2022-06-08 10:19] LABS: BASOPHILS % 0.4 % (0.0-1.0); EOSINOPHILS # (AUTO) 0.1 (0.0-0.4); HEMATOCRIT 33.4 % (34.2-44.1); HEMOGLOBIN 10.3 g/dL (12.0-16.0); LYMPHOCYTES # (AUTO) 2.1 (1.0-3.2); LYMPHOCYTES % 19.6 % (18.0-39.1); MEAN CORPUSCULAR HEMOGLOBIN 28.7 pg (28-32); MEAN CORPUSCULAR HGB CONC 30.8 g/dL (31-35); MONOCYTES # (AUTO) 1.7 (0.2-0.8); MONOCYTES % 15.8 % (4.4-11.3); NEUTROPHILS # (AUTO) 6.8 (2.1-6.9); NEUTROPHILS % 62.6 % (38.7-80.0); PLATELET COUNT 596 x10e3/uL (140-360); RED BLOOD COUNT 3.59 x10e6/uL (3.6-5.1); RED CELL DISTRIBUTION WIDTH 13.4 % (11.7-14.4)
[2022-06-08 10:59] LABS: ANION GAP 14.9 mmol/L (8-16); BLOOD UREA NITROGEN < 5 mg/dL (7-26); CALCIUM 8.3 mg/dL (8.4-10.2); CARBON DIOXIDE 26 mmol/L (22-29); CHLORIDE 97 mmol/L (98-107); CREATININE, SERUM 0.67 mg/dL (0.57-1.11); GLUCOSE 134 mg/dL (74-118); SODIUM 135 mmol/L (136-145)
[2022-06-08 11:05] LABS: BUN/CREATININE RATIO 7 (6-25)
[2022-06-08 11:06] LABS: POTASSIUM 2.9 mmol/L (3.5-5.1)
[2022-06-08] MEDS: FLUCONAZOLE 200 MG/100 ML 100 ML IV SCH (12:57)
[2022-06-08] MEDS ORDERED: POTASSIUM CHLORIDE 20MEQ/15ML UDC NG STA (13:13)
[2022-06-08] MEDS: KCL 20 MEQ PACKET/ ORAL SOLN PO SCH ×4 (14:07→20:33)
[2022-06-08] MEDS: NEOMYCIN SULFATE 500 MG TAB PO SCH ×4 (18:56→23:00)
[2022-06-08] MEDS: ERYTHROMYCIN 250 MG TAB PO SCH ×4 (18:57→23:00)
[2022-06-09] VITALS (18 sets, daily range): BP systolic 111–177; BP diastolic 51–84
[2022-06-09] MEDS: METRONIDAZOLE 500MG/NS 100ML 100 ML IV SCH ×4 (02:02→21:10)
[2022-06-09] MEDS: CEFEPIME 2 GM in SODIUM CHLORIDE 0.9% 100 ML IV SCH ×3 (05:36→22:41)
[2022-06-09] MEDS: SODIUM CHLORIDE 0.9% 1000ML 1,000 ML IV SCH ×2 (05:36→12:45)
[2022-06-09 05:48] LABS: BASOPHILS # (AUTO) 0.1 (0.0-0.1); BASOPHILS % 0.7 % (0.0-1.0); EOSINOPHILS # (AUTO) 0.2 (0.0-0.4); EOSINOPHILS % 2.3 % (0.0-6.0); HEMATOCRIT 33.2 % (34.2-44.1); HEMOGLOBIN 10.7 g/dL (12.0-16.0); LYMPHOCYTES # (AUTO) 2.5 (1.0-3.2); LYMPHOCYTES % 27.4 % (18.0-39.1); MEAN CORPUSCULAR HEMOGLOBIN 28.4 pg (28-32); MEAN CORPUSCULAR HGB CONC 32.2 g/dL (31-35); MEAN CORPUSCULAR VOLUME 88.1 fL (81-99); MONOCYTES # (AUTO) 1.4 (0.2-0.8); MONOCYTES % 15.3 % (4.4-11.3); NEUTROPHILS # (AUTO) 4.8 (2.1-6.9); NEUTROPHILS % 53.5 % (38.7-80.0); PLATELET COUNT 606 x10e3/uL (140-360); RED BLOOD COUNT 3.77 x10e6/uL (3.6-5.1); RED CELL DISTRIBUTION WIDTH 13.5 % (11.7-14.4)
[2022-06-09 06:10] LABS: ANION GAP 14.4 mmol/L (8-16); BLOOD UREA NITROGEN < 5 mg/dL (7-26); CALCIUM 8.3 mg/dL (8.4-10.2); CARBON DIOXIDE 28 mmol/L (22-29); CHLORIDE 99 mmol/L (98-107); CREATININE, SERUM 0.63 mg/dL (0.57-1.11); GLUCOSE 128 mg/dL (74-118); POTASSIUM 4.4 mmol/L (3.5-5.1); SODIUM 137 mmol/L (136-145)
[2022-06-09 06:11] LABS: BUN/CREATININE RATIO 8 (6-25)
[2022-06-09] MEDS: INSULIN LISPRO 100 UNIT/1 ML 3ML VIAL SQ SCH ×2 (07:30→11:30)
[2022-06-09] MEDS ORDERED: NYSTATIN 15 GM POWDER UD BTL TOP SCH (09:00)
[2022-06-09] MEDS ORDERED: Vancomycin IV 1 GM in SODIUM CHLORIDE 0.9% 250ML 250 ML IV SCH (09:00)
[2022-06-09] MEDS: FLUCONAZOLE 200 MG/100 ML 100 ML IV SCH (13:00)
[2022-06-09] MEDS ORDERED: FENTANYL CITRATE/PF 100MCG/2 ML INJ ONE (14:14)
[2022-06-09] MEDS ORDERED: KETAMINE HCL INJ 50 MG/ML 10 ML VIAL ONE (14:14)
[2022-06-09] MEDS ORDERED: ROPIVACAINE 246.25 MG, EPINEPHRINE HCL 1:1000 1ML 0.5 MG, CLONIDINE HCL 0.08 MG, KETORO... INJ ONE ×5 (16:00)
[2022-06-09] MEDS ORDERED: METOPROLOL TARTRATE INJ 1 MG/ML VIAL ONE (17:54)
[2022-06-09] MEDS ORDERED: ESMOLOL HCL 100MG/10ML 10 MG/ML VIAL ONE (17:54)
[2022-06-09] MEDS ORDERED: PHENYLEPHRINE HCL 1% 10 MG/ML VIAL ONE (17:57)
[2022-06-09] MEDS ORDERED: ACETAMINOPHEN 1000 MG/100 ML IV PRN (19:15)
[2022-06-09] MEDS: ONDANSETRON HCL INJ 2MG/ML 2ML 2 MG/ML VIAL IV PRN (19:15)
[2022-06-09] MEDS ORDERED: HYDRALAZINE HCL 20 MG/ML VIAL ONE (19:45)
[2022-06-09] MEDS: SODIUM CHLORIDE 0.9% 250ML IRRIG IR SCH ×2 (20:48→23:26)
[2022-06-09] MEDS: HYDROMORPHONE 1MG/1ML INJ IV PRN (21:40)
[2022-06-10] VITALS (24 sets, daily range): BP systolic 145–177; BP diastolic 72–98
[2022-06-10] MEDS: HYDROMORPHONE 1MG/1ML INJ IV PRN ×6 (01:25→20:46)
[2022-06-10] MEDS: METRONIDAZOLE 500MG/NS 100ML 100 ML IV SCH ×4 (02:17→19:43)
[2022-06-10] MEDS: SODIUM CHLORIDE 0.9% 1000ML 1,000 ML IV SCH ×3 (02:17→18:45)
[2022-06-10] MEDS: SODIUM CHLORIDE 0.9% 250ML IRRIG IR SCH ×5 (02:55→22:34)
[2022-06-10] MEDS: CEFEPIME 2 GM in SODIUM CHLORIDE 0.9% 100 ML IV SCH ×3 (05:32→22:09)
[2022-06-10 08:39] LABS: BASOPHILS % 0.1 % (0.0-1.0); HEMATOCRIT 34.9 % (34.2-44.1); HEMOGLOBIN 10.9 g/dL (12.0-16.0); LYMPHOCYTES # (AUTO) 1.2 (1.0-3.2); LYMPHOCYTES % 6.9 % (18.0-39.1); MEAN CORPUSCULAR HEMOGLOBIN 28.7 pg (28-32); MEAN CORPUSCULAR HGB CONC 31.2 g/dL (31-35); MEAN CORPUSCULAR VOLUME 91.8 fL (81-99); MONOCYTES # (AUTO) 1.1 (0.2-0.8); MONOCYTES % 6.5 % (4.4-11.3); NEUTROPHILS # (AUTO) 14.4 (2.1-6.9); NEUTROPHILS % 85.7 % (38.7-80.0); PLATELET COUNT 619 x10e3/uL (140-360); RED CELL DISTRIBUTION WIDTH 13.8 % (11.7-14.4)
[2022-06-10] MEDS: ONDANSETRON HCL INJ 2MG/ML 2ML 2 MG/ML VIAL IV PRN ×2 (08:59→15:51)
[2022-06-10 09:02] LABS: ALBUMIN 1.9 g/dL (3.5-5.0); ALBUMIN/GLOBULIN RATIO 0.4 (0.8-2.0); ANION GAP 21.6 mmol/L (8-16); CALCIUM 7.8 mg/dL (8.4-10.2); CREATININE, SERUM 0.73 mg/dL (0.57-1.11); POTASSIUM 3.6 mmol/L (3.5-5.1)
[2022-06-10] MEDS ORDERED: DEXTROSE 50% SYRINGE 50 ML IV PRN (09:30)
[2022-06-10] MEDS: INSULIN LISPRO 100 UNIT/1 ML 3ML VIAL SQ SCH ×3 (12:21→21:00)
[2022-06-10] MEDS: FLUCONAZOLE 200 MG/100 ML 100 ML IV SCH (12:22)
[2022-06-10] MEDS: CLONIDINE HCL 0.1 MG/24 HR 1 EA PATCH TOP SCH (17:11)
[2022-06-10] MEDS ORDERED: HYDRALAZINE HCL 20 MG/ML VIAL IV ONE (23:00)
[2022-06-11] VITALS (25 sets, daily range): BP systolic 110–169; BP diastolic 60–100
[2022-06-11] MEDS: METRONIDAZOLE 500MG/NS 100ML 100 ML IV SCH ×4 (01:30→19:50)
[2022-06-11] MEDS: HYDROMORPHONE 1MG/1ML INJ IV PRN ×4 (01:31→23:42)
[2022-06-11] MEDS: SODIUM CHLORIDE 0.9% 250ML IRRIG IR SCH ×6 (03:30→23:14)
[2022-06-11] MEDS: HYDRALAZINE HCL 20 MG/ML VIAL IV PRN ×2 (05:18→12:11)
[2022-06-11] MEDS: CEFEPIME 2 GM in SODIUM CHLORIDE 0.9% 100 ML IV SCH ×3 (05:18→23:14)
[2022-06-11] MEDS: SODIUM CHLORIDE 0.9% 1000ML 1,000 ML IV SCH ×3 (06:20→21:28)
[2022-06-11] MEDS: INSULIN LISPRO 100 UNIT/1 ML 3ML VIAL SQ SCH ×4 (07:30→20:37)
[2022-06-11 07:59] LABS: BASOPHILS % 0.2 % (0.0-1.0); EOSINOPHILS % 0.1 % (0.0-6.0); HEMATOCRIT 32.3 % (34.2-44.1); HEMOGLOBIN 10.4 g/dL (12.0-16.0); LYMPHOCYTES # (AUTO) 2.2 (1.0-3.2); LYMPHOCYTES % 12.3 % (18.0-39.1); MEAN CORPUSCULAR HEMOGLOBIN 28.9 pg (28-32); MEAN CORPUSCULAR HGB CONC 32.2 g/dL (31-35); MEAN CORPUSCULAR VOLUME 89.7 fL (81-99); MONOCYTES # (AUTO) 2.3 (0.2-0.8); MONOCYTES % 12.9 % (4.4-11.3); NEUTROPHILS # (AUTO) 13.1 (2.1-6.9); NEUTROPHILS % 73.7 % (38.7-80.0); PLATELET COUNT 585 x10e3/uL (140-360); RED CELL DISTRIBUTION WIDTH 13.9 % (11.7-14.4)
[2022-06-11] MEDS: ONDANSETRON HCL INJ 2MG/ML 2ML 2 MG/ML VIAL IV PRN ×2 (08:02→18:18)
[2022-06-11 08:33] LABS: ALBUMIN 1.9 g/dL (3.5-5.0); ALBUMIN/GLOBULIN RATIO 0.4 (0.8-2.0); ANION GAP 16.1 mmol/L (8-16); CALCIUM 8.2 mg/dL (8.4-10.2); CREATININE, SERUM 0.64 mg/dL (0.57-1.11); POTASSIUM 3.1 mmol/L (3.5-5.1)
[2022-06-11] MEDS ORDERED: POTASSIUM CHLORIDE 20MEQ/100ML 100 ML IV STA (09:31)
[2022-06-11] MEDS: DIPHENHYDRAMINE HCL INJ 50 MG/ML VIAL IV PRN (11:20)
[2022-06-11] MEDS: FLUCONAZOLE 200 MG/100 ML 100 ML IV SCH (12:19)
[2022-06-11] MEDS ORDERED: METOPROLOL TARTRATE INJ 1 MG/ML VIAL IV PRN (13:15)
[2022-06-11] MEDS ORDERED: AMIODARONE 900MG 900 MG in Premix Bag 1 BAG IV SCH (13:30)
[2022-06-11] MEDS ORDERED: AMIODARONE HCL 150 MG/100 ML BAG IV ONE (13:30)
[2022-06-11] MEDS ORDERED: AMIODARONE HCL 100 ML IV ONE (13:40)
[2022-06-11] MEDS: AMIODARONE 900MG 500 ML IV SCH (13:41)
[2022-06-11] MEDS ORDERED: AMIODARONE 900MG 500 ML IV ONE (13:41)
[2022-06-11] MEDS ORDERED: AMIODARONE HCL 150 MG in DEXTROSE 5% 100ML 100 ML IV SCH (14:00)
[2022-06-11] MEDS ORDERED: METOPROLOL TARTRATE INJ 1 MG/ML VIAL IV ONE (15:00)
[2022-06-11] MEDS ORDERED: DIGOXIN INJ 0.25 MG/ML 2 ML AMP IV ONE (15:30)
[2022-06-11 16:40] LABS: ALBUMIN 1.8 g/dL (3.5-5.0); ALBUMIN/GLOBULIN RATIO 0.4 (0.8-2.0); ANION GAP 17.9 mmol/L (8-16); CREATININE, SERUM 0.57 mg/dL (0.57-1.11)
[2022-06-11 16:49] LABS: POTASSIUM 3.9 mmol/L (3.5-5.1)
[2022-06-11] MEDS: METOPROLOL TARTRATE INJ 1 MG/ML VIAL IV SCH (21:35)
[2022-06-12] VITALS (29 sets, daily range): BP systolic 138–174; BP diastolic 65–86
[2022-06-12] MEDS: METRONIDAZOLE 500MG/NS 100ML 100 ML IV SCH ×4 (01:52→20:05)
[2022-06-12] MEDS: DIPHENHYDRAMINE HCL INJ 50 MG/ML VIAL IV PRN ×3 (02:19→20:09)
[2022-06-12] MEDS: SODIUM CHLORIDE 0.9% 250ML IRRIG IR SCH ×6 (03:15→23:15)
[2022-06-12] MEDS: HYDROMORPHONE 1MG/1ML INJ IV PRN ×4 (04:46→19:20)
[2022-06-12 04:55] LABS: BASOPHILS % 0.2 % (0.0-1.0); EOSINOPHILS # (AUTO) 0.3 (0.0-0.4); EOSINOPHILS % 2.7 % (0.0-6.0); HEMATOCRIT 30.4 % (34.2-44.1); HEMOGLOBIN 9.6 g/dL (12.0-16.0); LYMPHOCYTES # (AUTO) 2.4 (1.0-3.2); LYMPHOCYTES % 19.4 % (18.0-39.1); MEAN CORPUSCULAR HEMOGLOBIN 28.8 pg (28-32); MEAN CORPUSCULAR HGB CONC 31.6 g/dL (31-35); MEAN CORPUSCULAR VOLUME 91.3 fL (81-99); MONOCYTES # (AUTO) 1.8 (0.2-0.8); MONOCYTES % 14.7 % (4.4-11.3); NEUTROPHILS # (AUTO) 7.7 (2.1-6.9); NEUTROPHILS % 62.2 % (38.7-80.0); PLATELET COUNT 518 x10e3/uL (140-360); RED BLOOD COUNT 3.33 x10e6/uL (3.6-5.1); RED CELL DISTRIBUTION WIDTH 14.3 % (11.7-14.4)
[2022-06-12 05:17] LABS: ALBUMIN 1.8 g/dL (3.5-5.0); ALBUMIN/GLOBULIN RATIO 0.4 (0.8-2.0); ANION GAP 13.9 mmol/L (8-16); CALCIUM 7.7 mg/dL (8.4-10.2); CREATININE, SERUM 0.6 mg/dL (0.57-1.11)
[2022-06-12] MEDS: AMIODARONE 900MG 500 ML IV SCH ×2 (05:25→14:25)
[2022-06-12 05:44] LABS: POTASSIUM 2.9 mmol/L (3.5-5.1)
[2022-06-12] MEDS: CEFEPIME 2 GM in SODIUM CHLORIDE 0.9% 100 ML IV SCH ×3 (05:50→22:03)
[2022-06-12] MEDS: METOPROLOL TARTRATE INJ 1 MG/ML VIAL IV SCH ×3 (05:50→22:04)
[2022-06-12] MEDS: INSULIN LISPRO 100 UNIT/1 ML 3ML VIAL SQ SCH ×3 (06:00→18:00)
[2022-06-12] MEDS ORDERED: POTASSIUM CHLORIDE 20MEQ/100ML 100 ML IV ONE ×3 (06:15→10:15)
[2022-06-12] MEDS ORDERED: MAGNESIUM SULFATE 2GM/50ML 50 ML IV ONE (09:45)
[2022-06-12] MEDS: ONDANSETRON HCL INJ 2MG/ML 2ML 2 MG/ML VIAL IV PRN ×4 (09:46→23:23)
[2022-06-12] MEDS: SODIUM CHLORIDE 0.9% 1000ML 1,000 ML IV SCH ×2 (09:47→20:04)
[2022-06-12] MEDS ORDERED: AMIODARONE 900MG 900 MG in Premix Bag 1 BAG IV SCH (12:00)
[2022-06-12] MEDS: FLUCONAZOLE 200 MG/100 ML 100 ML IV SCH (13:01)
[2022-06-12 16:49] LABS: ANION GAP 13.7 mmol/L (8-16); CALCIUM 7.9 mg/dL (8.4-10.2); CREATININE, SERUM 0.58 mg/dL (0.57-1.11); MAGNESIUM 1.8 MG/DL (1.3-2.1); POTASSIUM 3.7 mmol/L (3.5-5.1)
[2022-06-12] MEDS: HYDRALAZINE HCL 20 MG/ML VIAL IV PRN (18:34)
[2022-06-13] VITALS (41 sets, daily range): BP systolic 140–167; BP diastolic 56–80
[2022-06-13] MEDS: METRONIDAZOLE 500MG/NS 100ML 100 ML IV SCH ×4 (01:46→21:21)
[2022-06-13] MEDS: SODIUM CHLORIDE 0.9% 250ML IRRIG IR SCH ×6 (03:21→23:15)
[2022-06-13 04:55] LABS: BASOPHILS % 0.3 % (0.0-1.0); EOSINOPHILS # (AUTO) 0.5 (0.0-0.4); EOSINOPHILS % 3.9 % (0.0-6.0); HEMATOCRIT 31.8 % (34.2-44.1); HEMOGLOBIN 10.1 g/dL (12.0-16.0); LYMPHOCYTES % 16.7 % (18.0-39.1); MEAN CORPUSCULAR HEMOGLOBIN 28.9 pg (28-32); MEAN CORPUSCULAR HGB CONC 31.8 g/dL (31-35); MEAN CORPUSCULAR VOLUME 90.9 fL (81-99); MONOCYTES # (AUTO) 1.6 (0.2-0.8); MONOCYTES % 13.5 % (4.4-11.3); NEUTROPHILS # (AUTO) 7.9 (2.1-6.9); NEUTROPHILS % 64.9 % (38.7-80.0); PLATELET COUNT 527 x10e3/uL (140-360); RED CELL DISTRIBUTION WIDTH 14.5 % (11.7-14.4)
[2022-06-13 05:15] LABS: ALBUMIN 1.9 g/dL (3.5-5.0); ALBUMIN/GLOBULIN RATIO 0.4 (0.8-2.0); ANION GAP 15.2 mmol/L (8-16); CALCIUM 7.8 mg/dL (8.4-10.2); CREATININE, SERUM 0.57 mg/dL (0.57-1.11); POTASSIUM 3.2 mmol/L (3.5-5.1)
[2022-06-13] MEDS: INSULIN LISPRO 100 UNIT/1 ML 3ML VIAL SQ SCH ×4 (05:36→18:00)
[2022-06-13] MEDS: METOPROLOL TARTRATE INJ 1 MG/ML VIAL IV SCH ×3 (05:57→21:21)
[2022-06-13] MEDS: CEFEPIME 2 GM in SODIUM CHLORIDE 0.9% 100 ML IV SCH ×3 (05:57→21:21)
[2022-06-13] MEDS: SODIUM CHLORIDE 0.9% 1000ML 1,000 ML IV SCH ×2 (05:58→16:19)
[2022-06-13] MEDS: ONDANSETRON HCL INJ 2MG/ML 2ML 2 MG/ML VIAL IV PRN ×4 (06:32→23:55)
[2022-06-13] MEDS ORDERED: POTASSIUM CHLORIDE 20MEQ/100ML 200 ML IV ONE (08:30)
[2022-06-13] MEDS ORDERED: SALIVA SUBSTITUTE 45 ML LIQD MM PRN (10:30)
[2022-06-13] MEDS: HYDROMORPHONE 1MG/1ML INJ IV PRN ×2 (10:32→16:19)
[2022-06-13 10:41] LABS: % IRON SATURATION 21 % (15-50); IRON 38 ug/dL (50-170); TOTAL IRON BINDING CAPACITY 183 ug/dL (261-478); TRANSFERRIN 131 mg/dL (180-382)
[2022-06-13] MEDS: DIPHENHYDRAMINE HCL INJ 50 MG/ML VIAL IV PRN ×2 (11:12→19:27)
[2022-06-13] MEDS ORDERED: MAGNESIUM SULFATE 2GM/50ML 50 ML IV ONE (11:30)
[2022-06-13] MEDS: FLUCONAZOLE 200 MG/100 ML 100 ML IV SCH (13:15)
[2022-06-13] MEDS ORDERED: MAGNESIUM HYDROXIDE 30 ML UDC PO ONE (17:15)
[2022-06-13] MEDS ORDERED: HYDROMORPHONE 1MG/1ML INJ IV PRN (19:15)
[2022-06-13] MEDS: AMIODARONE 900MG 500 ML IV SCH (22:20)
[2022-06-14] VITALS (26 sets, daily range): BP systolic 142–173; BP diastolic 55–78
[2022-06-14] MEDS: DIPHENHYDRAMINE HCL INJ 50 MG/ML VIAL IV PRN (01:36)
[2022-06-14] MEDS: HYDRALAZINE HCL 20 MG/ML VIAL IV PRN (02:11)
[2022-06-14] MEDS: SODIUM CHLORIDE 0.9% 250ML IRRIG IR SCH (03:15)
[2022-06-14] MEDS: METOPROLOL TARTRATE INJ 1 MG/ML VIAL IV SCH ×3 (05:09→21:48)
[2022-06-14] MEDS: CEFEPIME 2 GM in SODIUM CHLORIDE 0.9% 100 ML IV SCH ×3 (05:10→21:49)
[2022-06-14] MEDS: METRONIDAZOLE 500MG/NS 100ML 100 ML IV SCH ×3 (05:11→21:48)
[2022-06-14 05:30] LABS: BASOPHILS % 0.3 % (0.0-1.0); EOSINOPHILS # (AUTO) 0.4 (0.0-0.4); EOSINOPHILS % 3.2 % (0.0-6.0); HEMATOCRIT 31.8 % (34.2-44.1); HEMOGLOBIN 10.4 g/dL (12.0-16.0); LYMPHOCYTES # (AUTO) 2.2 (1.0-3.2); LYMPHOCYTES % 18.7 % (18.0-39.1); MEAN CORPUSCULAR HEMOGLOBIN 28.7 pg (28-32); MEAN CORPUSCULAR HGB CONC 32.7 g/dL (31-35); MEAN CORPUSCULAR VOLUME 87.8 fL (81-99); MONOCYTES # (AUTO) 1.6 (0.2-0.8); MONOCYTES % 13.3 % (4.4-11.3); NEUTROPHILS # (AUTO) 7.5 (2.1-6.9); NEUTROPHILS % 63.2 % (38.7-80.0); PLATELET COUNT 533 x10e3/uL (140-360); RED BLOOD COUNT 3.62 x10e6/uL (3.6-5.1); RED CELL DISTRIBUTION WIDTH 14.2 % (11.7-14.4)
[2022-06-14] MEDS: INSULIN LISPRO 100 UNIT/1 ML 3ML VIAL SQ SCH ×4 (06:00→18:00)
[2022-06-14 06:01] LABS: ALANINE AMINOTRANSFERASE < 6 IU/L (0-55); ALBUMIN/GLOBULIN RATIO 0.4 (0.8-2.0); ALKALINE PHOSPHATASE 49 IU/L (40-150); ANION GAP 14.5 mmol/L (8-16); BLOOD UREA NITROGEN 10 mg/dL (7-26); BUN/CREATININE RATIO 17 (6-25); CARBON DIOXIDE 29 mmol/L (22-29); CHLORIDE 95 mmol/L (98-107); CREATININE, SERUM 0.58 mg/dL (0.57-1.11); GLUCOSE 121 mg/dL (74-118); POTASSIUM 3.5 mmol/L (3.5-5.1); SODIUM 135 mmol/L (136-145)
[2022-06-14] MEDS: SODIUM CHLORIDE 0.9% 1000ML 1,000 ML IV SCH ×2 (07:24→11:31)
[2022-06-14] MEDS: HEPARIN 25,000 UNIT 600 UNIT in DEXTROSE 5% 250ML 250 ML IV SCH (09:45)
[2022-06-14] MEDS ORDERED: HYDROMORPHONE 1MG/1ML INJ IV PRN (10:15)
[2022-06-14 11:37] LABS: INR 1.19; PROTHROMBIN TIME 16.1 seconds (11.9-14.5)
[2022-06-14 11:38] LABS: PARTIAL THROMBOPLASTIN TIME 30.8 seconds (23.8-35.5)
[2022-06-14] MEDS ORDERED: IOPAMIDOL 370 MG/ML 100 ML INFUS..BTL INJ ONE (12:16)
[2022-06-14] MEDS ORDERED: SODIUM CHLORIDE 0.9% 100 ML ONE (12:16)
[2022-06-14] MEDS ORDERED: SODIUM CHLORIDE 0.9% INJ ONE (16:00)
[2022-06-14] MEDS ORDERED: VALPROATE SOD INJ ONE (16:00)
[2022-06-14] MEDS: FLUCONAZOLE 200 MG/100 ML 100 ML IV SCH (17:00)
[2022-06-14] MEDS: ATORVASTATIN 40 MG TAB PO SCH (21:00)
[2022-06-14] MEDS ORDERED: SODIUM CHLORIDE 0.9% IV SCH (21:00)
[2022-06-14] MEDS ORDERED: VALPROATE SOD IV SCH (21:00)
[2022-06-14] MEDS: ONDANSETRON HCL INJ 2MG/ML 2ML 2 MG/ML VIAL IV PRN (21:38)
[2022-06-15] VITALS (38 sets, daily range): BP systolic 145–172; BP diastolic 64–84
[2022-06-15] MEDS: HEPARIN 25,000 UNIT 600 UNIT in DEXTROSE 5% 250ML 250 ML IV SCH (03:12)
[2022-06-15] MEDS: SODIUM CHLORIDE 0.9% 1000ML 1,000 ML IV SCH (05:05)
[2022-06-15] MEDS: AMIODARONE 900MG 500 ML IV SCH (05:20)
[2022-06-15] MEDS: HYDRALAZINE HCL 20 MG/ML VIAL IV PRN (05:48)
[2022-06-15] MEDS: METRONIDAZOLE 500MG/NS 100ML 100 ML IV SCH ×3 (05:48→23:30)
[2022-06-15] MEDS: INSULIN LISPRO 100 UNIT/1 ML 3ML VIAL SQ SCH ×4 (06:00→18:00)
[2022-06-15] MEDS: CEFEPIME 2 GM in SODIUM CHLORIDE 0.9% 100 ML IV SCH (06:42)
[2022-06-15] MEDS: METOPROLOL TARTRATE INJ 1 MG/ML VIAL IV SCH ×3 (06:43→23:31)
[2022-06-15] MEDS: ONDANSETRON HCL INJ 2MG/ML 2ML 2 MG/ML VIAL IV PRN ×2 (07:12→21:26)
[2022-06-15 07:16] LABS: BASOPHILS # (AUTO) 0.1 (0.0-0.1); BASOPHILS % 0.6 % (0.0-1.0); EOSINOPHILS # (AUTO) 0.5 (0.0-0.4); EOSINOPHILS % 3.8 % (0.0-6.0); HEMATOCRIT 31.4 % (34.2-44.1); HEMOGLOBIN 10.3 g/dL (12.0-16.0); LYMPHOCYTES # (AUTO) 2.4 (1.0-3.2); LYMPHOCYTES % 17.4 % (18.0-39.1); MEAN CORPUSCULAR HEMOGLOBIN 28.9 pg (28-32); MEAN CORPUSCULAR HGB CONC 32.8 g/dL (31-35); MEAN CORPUSCULAR VOLUME 88.2 fL (81-99); MONOCYTES # (AUTO) 1.6 (0.2-0.8); MONOCYTES % 11.1 % (4.4-11.3); NEUTROPHILS # (AUTO) 9.2 (2.1-6.9); NEUTROPHILS % 65.5 % (38.7-80.0); PLATELET COUNT 564 x10e3/uL (140-360); RED BLOOD COUNT 3.56 x10e6/uL (3.6-5.1); RED CELL DISTRIBUTION WIDTH 14.6 % (11.7-14.4)
[2022-06-15 07:27] LABS: ANION GAP 17.4 mmol/L (8-16); CALCIUM 8.1 mg/dL (8.4-10.2); CREATININE, SERUM 0.59 mg/dL (0.57-1.11); POTASSIUM 3.4 mmol/L (3.5-5.1)
[2022-06-15] MEDS: HYDROMORPHONE 1MG/1ML INJ IV PRN ×3 (11:56→21:27)
[2022-06-15] MEDS ORDERED: POTASSIUM CHLORIDE 20MEQ/100ML 100 ML IV PRN (13:15)
[2022-06-15] MEDS ORDERED: PROPOFOL IV EMULSION 10 MG/ML 20 ML VIAL IV ONE (13:40)
[2022-06-15] MEDS ORDERED: POVIDONE IODINE 0.05% 0.05 % ML PO ONE (13:40)
[2022-06-15] MEDS ORDERED: ONDANSETRON HCL INJ 2MG/ML 2ML 2 MG/ML VIAL IV ONE (13:40)
[2022-06-15] MEDS ORDERED: GLYCOPYRROLATE INJ 0.2 MG/ML VIAL IV ONE (13:40)
[2022-06-15] MEDS ORDERED: DEXAMETHASONE SOD PHOS INJ 4 MG/ML SDV IV ONE (13:40)
[2022-06-15] MEDS ORDERED: NEOSTIGMINE 1 MG/ML 10ML VIAL IV ONE (13:40)
[2022-06-15] MEDS ORDERED: LIDOCAINE HCL 2% LOCAL INJ 5 ML SDV VIAL INJ ONE (13:40)
[2022-06-15] MEDS: ATORVASTATIN 40 MG TAB PO SCH (21:27)
[2022-06-16] VITALS (25 sets, daily range): BP systolic 141–182; BP diastolic 71–124
[2022-06-16] MEDS: SODIUM CHLORIDE 0.9% 1000ML 1,000 ML IV SCH ×2 (02:18→19:49)
[2022-06-16] MEDS: HYDROMORPHONE 1MG/1ML INJ IV PRN ×5 (02:18→20:59)
[2022-06-16] MEDS: ATORVASTATIN 40 MG TAB PO SCH (03:04)
[2022-06-16] MEDS: AMIODARONE 900MG 500 ML IV SCH (03:21)
[2022-06-16 04:57] LABS: BASOPHILS # (AUTO) 0.1 (0.0-0.1); BASOPHILS % 0.7 % (0.0-1.0); EOSINOPHILS # (AUTO) 0.2 (0.0-0.4); EOSINOPHILS % 1.5 % (0.0-6.0); HEMATOCRIT 32.7 % (34.2-44.1); HEMOGLOBIN 10.7 g/dL (12.0-16.0); LYMPHOCYTES # (AUTO) 2.1 (1.0-3.2); LYMPHOCYTES % 16.4 % (18.0-39.1); MEAN CORPUSCULAR HGB CONC 32.7 g/dL (31-35); MEAN CORPUSCULAR VOLUME 88.6 fL (81-99); MONOCYTES # (AUTO) 1.7 (0.2-0.8); MONOCYTES % 12.7 % (4.4-11.3); NEUTROPHILS # (AUTO) 8.7 (2.1-6.9); NEUTROPHILS % 67.1 % (38.7-80.0); PLATELET COUNT 533 x10e3/uL (140-360); RED BLOOD COUNT 3.69 x10e6/uL (3.6-5.1); RED CELL DISTRIBUTION WIDTH 14.6 % (11.7-14.4)
[2022-06-16 05:11] LABS: ANION GAP 16.4 mmol/L (8-16); CALCIUM 8.2 mg/dL (8.4-10.2); CREATININE, SERUM 0.57 mg/dL (0.57-1.11); POTASSIUM 3.4 mmol/L (3.5-5.1)
[2022-06-16] MEDS: METRONIDAZOLE 500MG/NS 100ML 100 ML IV SCH ×3 (05:13→21:54)
[2022-06-16] MEDS: METOPROLOL TARTRATE INJ 1 MG/ML VIAL IV SCH ×3 (05:14→21:53)
[2022-06-16] MEDS: INSULIN LISPRO 100 UNIT/1 ML 3ML VIAL SQ SCH ×5 (05:15→21:00)
[2022-06-16] MEDS: HEPARIN 25,000 UNIT 600 UNIT in DEXTROSE 5% 250ML 250 ML IV SCH (07:58)
[2022-06-16] MEDS: ONDANSETRON HCL INJ 2MG/ML 2ML 2 MG/ML VIAL IV PRN ×2 (08:04→21:13)
[2022-06-16] MEDS ORDERED: ACETAMINOPHEN 325 MG TAB PO PRN (11:15)
[2022-06-16] MEDS: DIPHENHYDRAMINE HCL 25 MG CAP PO PRN (13:38)
[2022-06-16] MEDS: APIXABAN 5 MG TABLET PO SCH (16:42)
[2022-06-16] MEDS: AMIODARONE HCL 200 MG TAB PO SCH (16:42)
[2022-06-17] VITALS (24 sets, daily range): BP systolic 129–162; BP diastolic 66–104
[2022-06-17] MEDS: ONDANSETRON HCL INJ 2MG/ML 2ML 2 MG/ML VIAL IV PRN ×3 (02:58→16:05)
[2022-06-17] MEDS: HYDROMORPHONE 1MG/1ML INJ IV PRN ×4 (02:59→21:06)
[2022-06-17] MEDS: METRONIDAZOLE 500MG/NS 100ML 100 ML IV SCH ×3 (05:02→21:07)
[2022-06-17] MEDS: METOPROLOL TARTRATE INJ 1 MG/ML VIAL IV SCH ×2 (05:03→13:18)
[2022-06-17 07:51] LABS: BASOPHILS # (AUTO) 0.1 (0.0-0.1); BASOPHILS % 0.5 % (0.0-1.0); EOSINOPHILS # (AUTO) 0.2 (0.0-0.4); EOSINOPHILS % 1.8 % (0.0-6.0); HEMATOCRIT 34.1 % (34.2-44.1); HEMOGLOBIN 10.9 g/dL (12.0-16.0); LYMPHOCYTES # (AUTO) 1.8 (1.0-3.2); LYMPHOCYTES % 16.1 % (18.0-39.1); MEAN CORPUSCULAR HEMOGLOBIN 28.8 pg (28-32); MONOCYTES # (AUTO) 1.5 (0.2-0.8); NEUTROPHILS # (AUTO) 7.5 (2.1-6.9); NEUTROPHILS % 67.3 % (38.7-80.0); PLATELET COUNT 514 x10e3/uL (140-360); RED BLOOD COUNT 3.79 x10e6/uL (3.6-5.1); RED CELL DISTRIBUTION WIDTH 15.1 % (11.7-14.4)
[2022-06-17 08:01] LABS: ANION GAP 15.7 mmol/L (8-16); CALCIUM 8.3 mg/dL (8.4-10.2); CREATININE, SERUM 0.59 mg/dL (0.57-1.11); POTASSIUM 3.7 mmol/L (3.5-5.1)
[2022-06-17] MEDS: APIXABAN 5 MG TABLET PO SCH ×2 (08:09→16:35)
[2022-06-17] MEDS: AMIODARONE HCL 200 MG TAB PO SCH ×2 (08:09→16:35)
[2022-06-17] MEDS: INSULIN LISPRO 100 UNIT/1 ML 3ML VIAL SQ SCH ×4 (08:12→20:14)
[2022-06-17] MEDS: NYSTATIN 15 GM POWDER UD BTL TOP SCH (08:17)
[2022-06-17] MEDS ORDERED: NYSTATIN/TRIAMCINOLONE 30 GM CR TOP SCH (09:00)
[2022-06-17] MEDS: SODIUM CHLORIDE 0.9% 1000ML 1,000 ML IV SCH (16:11)
[2022-06-17] MEDS: METOPROLOL TARTRATE 25 MG TAB PO SCH (16:35)
[2022-06-17] MEDS: CLONIDINE HCL 0.1 MG/24 HR 1 EA PATCH TOP SCH (17:01)
[2022-06-17] MEDS: ATORVASTATIN 40 MG TAB PO SCH (20:02)
[2022-06-17] MEDS: TRAMADOL HCL 50 MG TAB PO PRN (20:03)
[2022-06-18] VITALS (28 sets, daily range): BP systolic 113–161; BP diastolic 58–92
[2022-06-18] MEDS: TRAMADOL HCL 50 MG TAB PO PRN ×2 (01:59→21:29)
[2022-06-18] MEDS: METRONIDAZOLE 500MG/NS 100ML 100 ML IV SCH ×3 (06:25→21:29)
[2022-06-18] MEDS: APIXABAN 5 MG TABLET PO SCH ×2 (08:20→17:00)
[2022-06-18] MEDS: METOPROLOL TARTRATE 25 MG TAB PO SCH ×2 (08:21→17:00)
[2022-06-18] MEDS: AMIODARONE HCL 200 MG TAB PO SCH ×2 (08:21→17:00)
[2022-06-18] MEDS: INSULIN LISPRO 100 UNIT/1 ML 3ML VIAL SQ SCH ×4 (08:23→21:36)
[2022-06-18] MEDS: HYDROMORPHONE 1MG/1ML INJ IV PRN ×2 (15:08→22:09)
[2022-06-18] MEDS: NYSTATIN 15 GM POWDER UD BTL TOP SCH (16:03)
[2022-06-18] MEDS: ATORVASTATIN 40 MG TAB PO SCH (21:28)
[2022-06-19] VITALS (13 sets, daily range): BP systolic 136–166; BP diastolic 61–84
[2022-06-19] MEDS: METRONIDAZOLE 500MG/NS 100ML 100 ML IV SCH ×3 (05:56→21:15)
[2022-06-19] MEDS: TRAMADOL HCL 50 MG TAB PO PRN (06:03)
[2022-06-19] MEDS: INSULIN LISPRO 100 UNIT/1 ML 3ML VIAL SQ SCH ×4 (07:57→21:18)
[2022-06-19] MEDS: HYDROMORPHONE 1MG/1ML INJ IV PRN ×3 (08:44→21:35)
[2022-06-19] MEDS: NYSTATIN 15 GM POWDER UD BTL TOP SCH (09:00)
[2022-06-19] MEDS ORDERED: ARTIFICIAL TEARS (OPTH) 15 ML BTL OU PRN (09:15)
[2022-06-19] MEDS: AMIODARONE HCL 200 MG TAB PO SCH ×2 (09:40→16:50)
[2022-06-19] MEDS: APIXABAN 5 MG TABLET PO SCH ×2 (09:41→16:50)
[2022-06-19] MEDS: METOPROLOL TARTRATE 25 MG TAB PO SCH ×2 (09:41→16:50)
[2022-06-19] MEDS: ATORVASTATIN 40 MG TAB PO SCH (21:15)
[2022-06-19] MEDS: DIPHENHYDRAMINE HCL 25 MG CAP PO PRN (23:35)
[2022-06-20] VITALS: BP 149/71
[2022-06-20 04:00] VITALS: BP 170/72
[2022-06-20] MEDS: METRONIDAZOLE 500MG/NS 100ML 100 ML IV SCH ×3 (05:18→21:03)
[2022-06-20] MEDS: HYDRALAZINE HCL 20 MG/ML VIAL IV PRN (05:21)
[2022-06-20] MEDS: HYDROMORPHONE 1MG/1ML INJ IV PRN ×4 (05:22→23:25)
[2022-06-20 06:27] LABS: BASOPHILS % 0.5 % (0.0-1.0); EOSINOPHILS # (AUTO) 0.3 (0.0-0.4); EOSINOPHILS % 3.4 % (0.0-6.0); HEMATOCRIT 33.9 % (34.2-44.1); HEMOGLOBIN 10.3 g/dL (12.0-16.0); LYMPHOCYTES # (AUTO) 2.4 (1.0-3.2); LYMPHOCYTES % 28.2 % (18.0-39.1); MEAN CORPUSCULAR HEMOGLOBIN 28.6 pg (28-32); MEAN CORPUSCULAR HGB CONC 30.4 g/dL (31-35); MEAN CORPUSCULAR VOLUME 94.2 fL (81-99); MONOCYTES # (AUTO) 1.3 (0.2-0.8); MONOCYTES % 15.4 % (4.4-11.3); NEUTROPHILS # (AUTO) 4.4 (2.1-6.9); NEUTROPHILS % 51.6 % (38.7-80.0); PLATELET COUNT 534 x10e3/uL (140-360); RED CELL DISTRIBUTION WIDTH 15.7 % (11.7-14.4)
[2022-06-20 06:38] LABS: ANION GAP 12.9 mmol/L (8-16); CALCIUM 8.5 mg/dL (8.4-10.2); CREATININE, SERUM 0.53 mg/dL (0.57-1.11); POTASSIUM 3.9 mmol/L (3.5-5.1)
[2022-06-20] MEDS: INSULIN LISPRO 100 UNIT/1 ML 3ML VIAL SQ SCH ×4 (07:30→20:41)
[2022-06-20 08:26] VITALS: BP 135/59
[2022-06-20 09:00] VITALS: BP 135/59
[2022-06-20] MEDS: APIXABAN 5 MG TABLET PO SCH ×2 (09:58→17:49)
[2022-06-20] MEDS: AMIODARONE HCL 200 MG TAB PO SCH ×2 (09:58→17:49)
[2022-06-20] MEDS: METOPROLOL TARTRATE 25 MG TAB PO SCH ×2 (09:59→17:50)
[2022-06-20] MEDS: NYSTATIN 15 GM POWDER UD BTL TOP SCH (10:00)
[2022-06-20 12:40] VITALS: BP 132/58
[2022-06-20] MEDS ORDERED: SODIUM CHLORIDE 0.9% 250ML 250 ML ONE (15:02)
[2022-06-20 20:00] VITALS: BP 150/62
[2022-06-20] MEDS: ATORVASTATIN 40 MG TAB PO SCH (21:00)
[2022-06-20] MEDS: ONDANSETRON HCL INJ 2MG/ML 2ML 2 MG/ML VIAL IV PRN (23:25)
[2022-06-21] VITALS (10 sets, daily range): BP systolic 130–182; BP diastolic 58–83
[2022-06-21] MEDS: METRONIDAZOLE 500MG/NS 100ML 100 ML IV SCH ×3 (05:11→21:27)
[2022-06-21] MEDS: ONDANSETRON HCL INJ 2MG/ML 2ML 2 MG/ML VIAL IV PRN (05:11)
[2022-06-21] MEDS: HYDROMORPHONE 1MG/1ML INJ IV PRN ×4 (05:11→21:31)
[2022-06-21] MEDS: APIXABAN 5 MG TABLET PO SCH ×2 (08:58→17:00)
[2022-06-21] MEDS: AMIODARONE HCL 200 MG TAB PO SCH ×2 (08:58→17:00)
[2022-06-21] MEDS: METOPROLOL TARTRATE 25 MG TAB PO SCH ×2 (08:58→17:00)
[2022-06-21] MEDS: NYSTATIN 15 GM POWDER UD BTL TOP SCH (09:24)
[2022-06-21] MEDS: PANTOPRAZOLE SOD 40 MG TABEC PO SCH (09:24)
[2022-06-21] MEDS: INSULIN LISPRO 100 UNIT/1 ML 3ML VIAL SQ SCH ×4 (10:01→20:20)
[2022-06-21] MEDS: TRAMADOL HCL 50 MG TAB PO PRN (10:05)
[2022-06-21] MEDS: ATORVASTATIN 40 MG TAB PO SCH (20:22)
[2022-06-21] MEDS: HYDRALAZINE HCL 20 MG/ML VIAL IV PRN (20:23)
[2022-06-21] MEDS: DIPHENHYDRAMINE HCL 25 MG CAP PO PRN (23:51)
[2022-06-22] VITALS: BP 142/64
[2022-06-22 04:00] VITALS: BP 158/67
[2022-06-22] MEDS: HYDROMORPHONE 1MG/1ML INJ IV PRN ×2 (05:15→16:48)
[2022-06-22] MEDS: METRONIDAZOLE 500MG/NS 100ML 100 ML IV SCH (05:15)
[2022-06-22] MEDS: PANTOPRAZOLE SOD 40 MG TABEC PO SCH (08:16)
[2022-06-22] MEDS: INSULIN LISPRO 100 UNIT/1 ML 3ML VIAL SQ SCH ×3 (08:36→16:49)
[2022-06-22 09:34] VITALS: BP 134/57
[2022-06-22] MEDS: APIXABAN 5 MG TABLET PO SCH (09:55)
[2022-06-22] MEDS: AMIODARONE HCL 200 MG TAB PO SCH ×2 (09:55→17:00)
[2022-06-22] MEDS: NYSTATIN 15 GM POWDER UD BTL TOP SCH (09:55)
[2022-06-22] MEDS: METOPROLOL TARTRATE 25 MG TAB PO SCH ×2 (09:56→17:30)
[2022-06-22 13:36] VITALS: BP 131/61
[2022-06-22] MEDS ORDERED: SERTRALINE HCL 50 MG TAB PO SCH (14:15)
[2022-06-22] MEDS: ONDANSETRON HCL INJ 2MG/ML 2ML 2 MG/ML VIAL IV PRN (16:48)
[2022-06-22 17:06] VITALS: BP 155/68
[2022-06-22] MEDS ORDERED: ONDANSETRON HCL 4 MG ORAL DISINTEGRATING TAB PO PRN (17:15)
[2022-06-22] MEDS ORDERED: APIXABAN 5 MG TABLET PO SCH (17:45)
== END 2022-06-22 19:06 | DRG 853 ==
LOC: ER 09:50 → ERHOLD 12:35 → MED/SURG3 14:37 → ICU 06-09 14:42 → MED/SURG 06-19 11:52
PROC: 3E03329 Introduction of Other Anti-infective into Peripheral Vein, Percutaneous Approach (ICD-10-PCS; 2022-06-04)
PROC: 0DBN0ZZ Excision of Sigmoid Colon, Open Approach (ICD-10-PCS; 2022-06-09)
PROC: 0D1L0Z4 Bypass Transverse Colon to Cutaneous, Open Approach (ICD-10-PCS; 2022-06-09)
PROC: 0UT10ZZ Resection of Left Ovary, Open Approach (ICD-10-PCS; 2022-06-09)
PROC: 0UT60ZZ Resection of Left Fallopian Tube, Open Approach (ICD-10-PCS; 2022-06-09)
PROC: 0T9B70Z Drainage of Bladder with Drainage Device, Via Natural or Artificial Opening (ICD-10-PCS; 2022-06-09)
PROC: 0DBM0ZZ Excision of Descending Colon, Open Approach (ICD-10-PCS; principal; 2022-06-09 15:39)
DX: A41.9 Sepsis, unspecified organism (principal); E43 Unspecified severe protein-calorie malnutrition; I63.412 Cerebral infarction due to embolism of left middle cerebral artery; K65.9 Peritonitis, unspecified; K57.20 Diverticulitis of large intestine with perforation and abscess without bleeding; I97.791 Other intraoperative cardiac functional disturbances during other surgery; N39.0 Urinary tract infection, site not specified; R47.01 Aphasia; D63.8 Anemia in other chronic diseases classified elsewhere; E88.09 Other disorders of plasma-protein metabolism, not elsewhere classified; I48.0 Paroxysmal atrial fibrillation; E11.9 Type 2 diabetes mellitus without complications; I10 Essential (primary) hypertension; B95.2 Enterococcus as the cause of diseases classified elsewhere; E87.6 Hypokalemia; D64.9 Anemia, unspecified; E83.42 Hypomagnesemia; R53.1 Weakness; Z90.49 Acquired absence of other specified parts of digestive tract; Z88.5 Allergy status to narcotic agent; Z68.22 Body mass index [BMI] 22.0-22.9, adult; Z79.4 Long term (current) use of insulin
CPT/HCPCS: 0223U; 36415; 70450; 70496; 70498; 70551; 71045; 74177; 80048; 80053; 80202; 81001; 82550; 82553; 82948; 83540; 83605; 83690; 83735; 84466; 84484; 85025; 85610; 85730; 87040; 87086; 87186; 88304; 88305; 88307; 93005; 94799; 96372; 99251; 99284; J0171; J0360; J0692; J0694; J0696; J1100; J1160; J1170; J1200; J1450; J1885; J2001; J2270; J2370; J2405; J2543; J2710; J2795; J3010; J3370; J3475; J3480; J7030; J7050; Q9963; Q9967